=== PATIENT | female | born 1940 | race Two or more races ===

== ENCOUNTER 2020-12-04 12:18 | Outpatient (CLI) | payer MEDICARE, OTHER ==
[~2020-12-04 12:18] MED LIST: ALEN70TA77 PO; ASPI81TA45 PO; CALC500T14 PO; CARB10DR8 EACHEYE; GLUC1TAB27 PO; NAPR220T77 PO; OMEG-170 PO
[2020-12-04 13:35] LABS: BASOPHILS % (AUTO) 1 % (0-1); EOSINOPHILS % (AUTO) 3 % (1-7); LYMPHOCYTES % (AUTO) 36 % (22-44); MEAN CORPUSCULAR HEMOGLOBIN 27.7 pg (27.0-34.8); MEAN CORPUSCULAR HGB CONC 32.2 g/dL (32.4-35.8); MEAN PLATELET VOLUME 8.8 fL (7.4-10.4); MONOCYTES % (AUTO) 13 % (2-9); NEUTROPHILS % (AUTO) 48 % (42-75); PLATELET COUNT 287 x10^3/uL (130-400); RED BLOOD COUNT 3.99 x10^6/uL (3.82-5.3); RED CELL DISTRIBUTION WIDTH 15.1 % (9.6-15.2)
[2020-12-04 13:44] LABS: ANION GAP 6 mmol/L (5-15); CALCIUM 9.3 mg/dL (8.5-10.1); CHLORIDE 108 mmol/L (98-107)
[2020-12-04 13:45] LABS: CREATININE 0.86 mg/dL (0.55-1.02)
[2020-12-04 13:46] LABS: INTERNATIONAL NORMALIZED RATIO 1.02 (0.93-1.1); PROTHROMBIN TIME 10.9 Seconds (9.6-11.5)
== END 2020-12-04 23:59 | disposition home or self-care (01) ==
LOC: STAR 12:18
PROVIDERS: ATTEND Orthopaedic Surgery
DX: Z01.812 Encounter for preprocedural laboratory examination (principal); Z20.822 Contact with and (suspected) exposure to COVID-19
CPT/HCPCS: 36415; 80048; 83036; 85025; 85610; 85730; 87081; 87806; U0003; U0005; G0475

== ENCOUNTER 2020-12-08 08:00 | Observation (INO) | payer MEDICARE, OTHER ==
[~2020-12-08] VITALS: Ht 167.6 cm; Wt 70.5 kg
[~2020-12-08 08:00] MED LIST changes: +EPINEPHRINE 1 MG/ML, 1ML ONE; +KETOROLAC 60 MG/2 ML ONE; +ROPIvacaine/PF 0.2%, 20 ML ONE; +SODIUM CHLORIDE 0.9% 50 ML ONE; +TRANEXAMIC ACID 100 MG/ML, 10ML ONE
[2020-12-08] MEDS ORDERED: MIDAZOLAM 1 MG/ML, 2ML ONE (08:07)
[2020-12-08] MEDS ORDERED: FENTANYL PF 250 MCG/5ML ONE (08:07)
[2020-12-08] MEDS ORDERED: GABAPENTIN 300 MG CAPSULE PO STA (08:20)
[2020-12-08] MEDS ORDERED: ACETAMINOPHEN 500 MG TABLET PO STA (08:20)
[2020-12-08] MEDS ORDERED: LIDOCAINE-MPF 1%, 2ML ONE (08:23)
[2020-12-08] MEDS ORDERED: GABAPENTIN 300 MG CAPSULE ONE (08:24)
[2020-12-08] MEDS ORDERED: CHLORHEXIDINE 15 ML UDC ONE (08:24)
[2020-12-08] MEDS ORDERED: ACETAMINOPHEN 500 MG TABLET ONE (08:24)
[2020-12-08] MEDS ORDERED: DIPHENHYDRAMINE 50 MG CAPSULE PO PRN (08:30)
[2020-12-08] MEDS ORDERED: LIDOCAINE-MPF 1%, 2ML INFIL ONE (08:30)
[2020-12-08] MEDS ORDERED: LACTATED RINGERS 1,000 ML IV SCH (08:30)
[2020-12-08] MEDS ORDERED: METOCLOPRAMIDE 5 MG/ML, 2ML IVPush PRN (08:30)
[2020-12-08] MEDS ORDERED: ALUMINUM/MAG/SIMETHICONE 30 ML UDC PO PRN (08:30)
[2020-12-08] MEDS ORDERED: CHLORHEXIDINE 15 ML UDC PO ONE (08:30)
[2020-12-08] MEDS ORDERED: DIPHENHYDRAMINE 50 MG/ML, 1ML IVPush PRN (08:30)
[2020-12-08] MEDS ORDERED: HYDROmorphone 1 MG/ML, 1ML INJ IVPush PRN ×2 (08:30→10:30)
[2020-12-08] MEDS ORDERED: ACETAMINOPHEN 650 MG/20.3 ML UDC PO PRN (08:30)
[2020-12-08] MEDS ORDERED: SENNA/DOCUSATE TABLET PO PRN (08:30)
[2020-12-08] MEDS ORDERED: OXYcodone IR 5MG TABLET PO PRN (08:30)
[2020-12-08] MEDS ORDERED: ONDANSETRON 2MG/ML, 2ML IVPush PRN (08:30)
[2020-12-08] MEDS ORDERED: MAGNESIUM HYDROXIDE 8%, 30ML UDC PO PRN (08:30)
[2020-12-08] MEDS ORDERED: ONDANSETRON 4 MG TABLET PO PRN (08:30)
[2020-12-08] MEDS ORDERED: POLYETHYLENE GLYCOL 17 GM PACKET PO PRN (08:30)
[2020-12-08] MEDS: TAMSULOSIN 0.4 MG CAP.ER.24H PO SCH (09:00)
[2020-12-08] MEDS: DOCUSATE 100 MG CAPSULE PO SCH ×2 (09:00→21:00)
[2020-12-08] MEDS ORDERED: EPHEDRINE 50 MG/ML, 1ML ONE (09:41)
[2020-12-08] MEDS ORDERED: BUPIVACAINE/PF 0.25% ONE (10:24)
[2020-12-08] MEDS ORDERED: PROPOFOL 10 MG/ML, 20ML ONE (10:26)
[2020-12-08] MEDS ORDERED: CEFAZOLIN 1,000 MG ONE (10:26)
[2020-12-08] MEDS ORDERED: ONDANSETRON 2MG/ML, 2ML ONE (10:26)
[2020-12-08] MEDS ORDERED: DEXAMETHASONE 4 MG/ML, 1ML ONE (10:26)
[2020-12-08] MEDS ORDERED: ALBUTEROL SULFATE 2.5 MG/3 ML NPPB PRN (10:30)
[2020-12-08] MEDS ORDERED: PROMETHAZINE 25 MG/ML, 1ML IVPush PRN (10:30)
[2020-12-08] MEDS ORDERED: OXYcodone 5 MG/5 ML ORAL.SOL UDC PO PRN (10:30)
[2020-12-08] MEDS ORDERED: MIDAZOLAM 1 MG/ML, 2ML IV PRN (10:30)
[2020-12-08] MEDS ORDERED: LABETALOL 5MG/ML, 20ML IV PRN (10:30)
[2020-12-08] MEDS ORDERED: FENTANYL PF 100 MCG/2ML IV PRN (10:30)
[2020-12-08] MEDS ORDERED: ACETAMINOPHEN 325 MG TABLET PO PRN (10:30)
[2020-12-08] MEDS ORDERED: MEPERIDINE/PF 25MG/0.5ML IVPush PRN (10:30)
[2020-12-08] MEDS: KETOROLAC 30 MG/1 ML IV SCH ×2 (11:45→16:41)
[2020-12-08] MEDS ORDERED: KETOROLAC 30 MG/1 ML ONE (11:51)
[2020-12-08] MEDS ORDERED: OXYcodone 5 MG/5 ML ORAL.SOL UDC ONE (11:51)
[2020-12-08] MEDS ORDERED: TRANEXAMIC ACID 1,000 MG in SODIUM CHLORIDE 0.9% 100 ML IVPB ONE (12:00)
[2020-12-08 13:45] VITALS: BP 149/73
[2020-12-08] MEDS: POTASSIUM CHLORIDE 20 MEQ in D5%-0.45% NACL 1,000 ML IV SCH (16:41)
[2020-12-08] MEDS: ASPIRIN 81 MG TABLET EC PO SCH ×2 (18:45→21:00)
[2020-12-08] MEDS: CEFAZOLIN PMX 1GM/50ML 50 ML IVPB SCH (18:45)
[2020-12-08 19:28] VITALS: BP 116/67
[2020-12-09] MEDS: POTASSIUM CHLORIDE 20 MEQ in D5%-0.45% NACL 1,000 ML IV SCH (00:12)
[2020-12-09] MEDS: KETOROLAC 30 MG/1 ML IV SCH (00:14)
[2020-12-09] MEDS: DOCUSATE 100 MG CAPSULE PO SCH ×2 (00:14→09:21)
[2020-12-09 00:18] VITALS: BP 119/67
[2020-12-09] MEDS: CEFAZOLIN PMX 1GM/50ML 50 ML IVPB SCH (03:01)
[2020-12-09 04:01] VITALS: BP 102/55
[2020-12-09] MEDS ORDERED: DEXAMETHASONE 4 MG/ML, 1ML IVPush ONE (06:00)
[2020-12-09 07:00] VITALS: BP 117/54
[2020-12-09] MEDS: TAMSULOSIN 0.4 MG CAP.ER.24H PO SCH (09:00)
[2020-12-09] MEDS ORDERED: ASPI81TA45 PO (09:05)
[2020-12-09] MEDS: ASPIRIN 81 MG TABLET EC PO SCH (09:21)
[2020-12-09 10:15] VITALS: BP 126/64
== END 2020-12-09 11:28 | disposition home or self-care (01) ==
LOC: OUT 08:00 → ORIP 08:19 → 4NE 12:50 → DCLOUNGE 12-09 11:12
PROVIDERS: ADMIT Orthopaedic Surgery; ATTEND Orthopaedic Surgery
DX: M17.12 Unilateral primary osteoarthritis, left knee (principal); M81.0 Age-related osteoporosis without current pathological fracture; M71.22 Synovial cyst of popliteal space [Baker], left knee; Z79.899 Other long term (current) drug therapy
CPT/HCPCS: 27447; 36415; 73560; 85014; 85018; 96361; 96365; 96366; 96375; 96376; 97110; 97161; 97166; C1713; C1776; G0378; J0171; J0690; J1100; J1885; J2250; J2405; J2704; J2795; J3010; J3480; J3490; J7120